=== PATIENT | female | born 1980 | race Two or more races ===

== ENCOUNTER → 2016-05-29 | Outpatient (CLI) | payer OTHER ==
[2016-05-18 23:55] VITALS: BP 111/61
[~2016-05-29] MED LIST: CYCL10TA2 PO; DICL75TA PO; ERYT1OIN6 OS; HYDR-79 PO; HYDR-971 PO; HYDR1TAB12 PO; IBUP100O7 PO; METH-37 PO; NAPR500T3 PO; RANI150T6 PO; TRAM50TA PO
--- NOTE | 2016-05-29 14:20 | RAD ---
Examination: Ultrasound pelvis History: History of pelvic pain during periods during observation for one month Comparison: None available Technique: Transabdominal, transvaginal ultrasound examination of pelvis Findings: The uterus measures 10.9 x 6.2 x 5.1 cm. The right ovary measures 2.8 x 2.8 x1.7 cm. The left ovary measures 2.8 x 2.8 x 1.9 cm. The endometrium measures 1.1 cm in transverse dimension. Blood flow identified in the right and left ovaries. Small amount of fluid identified in the cervical canal. Few nabothian cysts identified in the cervix. Follicles identified in the right and left ovaries. Impression: Small amount of fluid identified in the cervical canal. Nonspecific. Otherwise unremarkable visualized exam.
== END | disposition home or self-care (01) ==
LOC: US 12:42
PROVIDERS: ATTEND Nurse Practitioner Family
DX: R10.2 Pelvic and perineal pain (principal)
CPT/HCPCS: 76830; 76856

== ENCOUNTER 2016-07-26 10:44 | Emergency (ER) | payer OTHER ==
[~2016-07-26] VITALS: Ht 167.6 cm; Wt 136.3 kg
[~2016-07-26 10:44] MED LIST changes: +CYCL-331 PO; -CYCL10TA2 PO; +IBUP100O24 PO; -IBUP100O7 PO
[2016-07-26 10:52] VITALS: BP 125/85
[2016-07-26] MEDS ORDERED: CLIN300C8 PO (11:01)
[2016-07-26] MEDS ORDERED: POLY10DR EACHEYE (11:01)
--- NOTE | 2016-07-26 11:03 | PHYS DOC ---
General Chief Complaint: EYE PROBLEMS Stated Complaint: EYE PROBLEM Time Seen by MD: 10:45 Source: patient Exam Limitations: no limitations Problems: History of Present Illness Initial Comments Pt is 35/F to ED c/o eye itching/swelling. Pt states last week she had FB sensation right eye and removed a hair. Past two days right then left eye redness/itching/yellow matting, today swelling around right eye. No vision changes or further FB sensation. No contact lenses , OTC "pinkeye" drops not helping. Missed work today. Pt states she has yeast infection and that antibiotics always cause them. Will give diflucan today and one to take at end of abx Timing/Duration: last week Severity: moderate Location: eye (R), eye (L) Prearrival Treatment: over the counter meds Modifying Factors: improves with other Associated Symptoms: nasal congestion/drainage, other Allergies: Coded Allergies: Penicillins (Verified Allergy, Intermediate, 12/31/14) UTI Past Medical History Medical History: no pertinent history Surgical History: noncontributory, other Family History Significant Family History: no pertinent family hx Social History Smoker: non-smoker Alcohol: none Drugs: none Constitutional: denies chills, denies diaphoresis, denies fever, denies malaise Eyes: see HPI Ears: denies dizziness, denies pain, denies tinnitus Nose: denies clots, congestion, denies epistaxis Throat: denies pain, denies swelling, denies discharge, denies neck stiffness Respiratory: denies cough, denies shortness of breath Cardiovascular: denies chest pain, denies palpitations Gastrointestinal: denies nausea, denies vomiting Musculoskeletal: denies joint swelling, denies neck pain Neurological: denies headache, denies numbness, denies paresthesia Physical Exam General Appearance: no apparent distress, obese Eyes: bilateral eye PERRL, bilateral eye EOMI, bilateral eye other (b/l conjunctival injection and yellow discharge, right periorbital swelling (mild), no EOM entrapment or discomfort, no bony TTP) Nose: normal inspection Mouth/Throat: normal mouth inspection, pharynx normal Neck: non-tender, supple Cardiovascular/Respiratory: normal peripheral pulses, no respiratory distress 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 Rest, no strenuous activity. OTC tylenol/ibuprofen as needed. Aggressive hand washing, change linens today and every other day this week. Rx: clindamycin, polytrim, diflucan Follow up with your doctor next week for recheck. Return to ED with new or changing symptoms. SEBASTIAN CARL DO July 26, 2016 11:03
[2016-07-26] MEDS ORDERED: FLUC150T PO (11:04)
[2016-07-26] MEDS ORDERED: CLINDAMYCIN HCL 150 MG CAPSULE PO ONE (11:45)
[2016-07-26] MEDS ORDERED: FLUCONAZOLE 100 MG TABLET. PO ONE (11:45)
== END 2016-07-26 11:36 | disposition home or self-care (01) ==
LOC: ER 10:44
DX: H10.9 Unspecified conjunctivitis (principal); L03.213 Periorbital cellulitis; Z88.0 Allergy status to penicillin
CPT/HCPCS: 99283

== ENCOUNTER 2016-10-20 17:06 | Emergency (ER) | payer OTHER ==
[~2016-10-20] VITALS: Ht 167.6 cm; Wt 136.3 kg
[~2016-10-20 17:06] MED LIST changes: +CLIN300C8 PO; +FLUC150T PO; +POLY10DR EACHEYE
[2016-10-20 17:13] VITALS: BP 124/83
[2016-10-20] MEDS ORDERED: DIAZ5TAB PO (17:41)
[2016-10-20] MEDS ORDERED: PRED20TA PO (17:41)
[2016-10-20] MEDS ORDERED: NAPR500T PO (17:41)
--- NOTE | 2016-10-20 17:41 | PHYS DOC ---
Past History Past Medical History: Other Past Surgical History: , Lumbar Laminectomy, Other Smoking: Cigarettes Alcohol Use: None Drug Use: None Adult General Chief Complaint Chief Complaint: BACK PAIN OR INJURY [facility] Patient is a pleasant 36-year-old female with chronic lower back pain who fell September 21. She suffered from standing position landing on her left hand and wrist and torquing her back. Since that time she's had increasing back pain described as achy and worsening with bending over walking and movements. She has a follow- up appointment tomorrow with her primary care doctor. She's been through physical therapy and a prior laminectomy in the past for her bulging disc as she describes to me. She claims she has multiple bulging disks her neck as well as her lumbar spine had not been addressed. She wants to follow-up with pain management but has not made arrangements for doing so. She tells me that the back pain is continuous although it comes in waves with certain movements. She tells me that she has no bowel or bladder incontinence, she's not severed from any numbness and tinea to her lower legs are than pain she demonstrates in the leg with certain movements. She denies any UTI symptoms, vaginal discharge or bleeding. She denies any fevers, chills, diarrhea, nausea or constipation. She normally takes ibuprofen at home which does help her symptoms on occasion. She also took a "" muscle relaxant with her spasms and muscle back pain.. Patient is really looking for immediate relief of her symptoms which is why she came to the emergency department today. Review of Systems Review of Systems Constitutional: Denies fever or chills [] Eyes: Denies change in visual acuity, redness, or eye pain [] HENT: Denies nasal congestion or sore throat [] Respiratory: Denies cough or shortness of breath [] Cardiovascular: No additional information not addressed in [facility] [] GI: Denies abdominal pain, nausea, vomiting, bloody stools or diarrhea [] : Denies dysuria or hematuria [] Musculoskeletal: She complains of lower back pain that radiates to her right lower leg. Integument: Denies rash or skin lesions [] Neurologic: Denies headache, focal weakness or sensory changes since that her leg feels weak secondary to pain. Endocrine: Denies polyuria or polydipsia [] Allergies Allergies Allergies Coded Allergies Type Severity Reaction Last Updated Verified Penicillins Allergy Intermediate 12/31/14 Yes Physical Exam Physical Exam His vital signs are heart rate of 94 pressure 04/07/82 sets 100% on room air with no evidence of fever. Constitutional: Well developed, well nourished, no acute distress, non-toxic appearance. She is morbidly obese resting comfortably on the cot. Cardiovascular:Heart rate regular rhythm, no murmur [] Lungs & Thorax: Bilateral breath sounds clear to auscultation [] Abdomen: Bowel sounds normal, soft, no tenderness, no masses, no pulsatile masses. [] Skin: Warm, dry, no erythema, no rash. [] Back: There is marked tenderness to palpation of the lumbar spine. Bilaterally not midline. Extremities: No tenderness, no cyanosis, no clubbing, ROM intact, no edema. [] Neurologic: Alert and oriented X 3, normal motor function, normal sensory function, no focal deficits noted. Patient has a negative straight leg raise bilaterally. She has normal plantar and dorsiflexion to 5 out of 5 strength to resistance. She has great range of motion of knees bilaterally with +2 DTRs. Does have pain that is reproducible with rotational motion Psychologic: Affect normal, judgement normal, mood normal. [] Current Patient Data Vital Signs Vital Signs Date Time Temp Pulse Resp B/P (MAP) Pulse Ox O2 Delivery O2 Flow Rate FiO2 10/20/16 17:13 97.7 95 20 98 Room Air EKG EKG [] Radiology/Procedures Radiology/Procedures [] Course & Med Decision Making Course & Med Decision Making Pertinent Labs and Imaging studies reviewed. (See chart for details) Patient presents with chronic lower back pain. She is in need of acute pain management. She is instructed in chronic pain management and evaluation and follow-up. She has a normal neuro exam today, no evidence of cauda equina, doubt UTI, patient has no abdominal pain, doubt that she is since she is in a monogamous relationship with another woman. There is nothing new about this pain just chronic exacerbation of old pain. She denies any fevers or chills doubt pyelonephritis or epidural abscess with no evidence of rotation to her back recently. She would likely benefit from an MRI eventually if her conservative management does not improve her symptoms. Impression: Chronic lower back pain [] Dragon Disclaimer Dragon Disclaimer This chart was dictated in whole or in part using Voice Recognition software in a busy, high-work load, and often noisy Emergency Department environment. It may contain unintended and wholly unrecognized errors or omissions. Departure Departure: Impression: Primary Impression: Chronic low back pain Disposition: HOME, SELF-CARE Condition: STABLE Referrals: HIRO ROB MD (PCP) Patient Instructions: Chronic Back Pain, Chronic Pain Management Additional Instructions: Please follow-up your primary care doctor for review of your present medical problems, medications and treatment modalities that you use recently for your chronic back pain issues. Advise you to follow-up with your primary care doctor to be referred back to physical therapy and occupational therapy. We will advise the strength in the lower back with exercise and stretching. Please return for new or worsening symptoms. Please return for any bowel or bladder incontinence night sweats or weight loss that's unintended. Scripts Diazepam (VALIUM) 5 Mg Tablet 5 MG PO TID for 5 Days, #15 TAB Please use one tablet every 8 hours as needed for muscle spasms. Do not drink alcohol or use other narcotics with this medication. Prov: RANDA CÁRDENAS MD 10/20/16 Prednisone (PREDNISONE) 20 Mg Tablet 3 TAB PO DAILY for 5 Days, #15 TAB Prov: RANDA CÁRDENAS MD 10/20/16 Naproxen (NAPROSYN) 500 Mg Tablet 1 TAB PO BID, #20 TAB 1 Refill Prov: RANDA CÁRDENAS MD 10/20/16 RANDA CÁRDENAS MD Oct 20, 2016 17:41
[2016-10-20] MEDS ORDERED: KETOROLAC 60 MG/2 ML VIAL. IM ONE (17:45)
[2016-10-20] MEDS ORDERED: HYDROmorphone PF 1 MG/ML DISP.SYRIN IM ONE (17:45)
== END 2016-10-20 18:11 | disposition home or self-care (01) ==
LOC: ER 17:06
DX: G89.29 Other chronic pain (principal); M54.5 Low back pain; M79.661 Pain in right lower leg; F17.210 Nicotine dependence, cigarettes, uncomplicated; Z88.0 Allergy status to penicillin
CPT/HCPCS: 96372; 99284; J1170; J1885

== ENCOUNTER 2016-12-13 19:05 | Emergency (ER) | payer SELFPAY ==
[~2016-12-13] VITALS: Ht 167.6 cm; Wt 131.5 kg
[~2016-12-13 19:05] MED LIST changes: +DIAZ5TAB PO; +NAPR500T PO; +PRED20TA PO
--- NOTE | 2016-12-13 19:40 | PHYS DOC ---
Past History Past Medical History: Other Past Surgical History: , Lumbar Laminectomy, Other Smoking: Cigarettes Alcohol Use: None Drug Use: None Adult General Chief Complaint Chief Complaint: BACK PAIN OR INJURY [facility] HPI Patient is a 36 year old female who presents with back/hip pain that goes down the back of her leg. She states she's been moving the last several days and her pain is been getting worse. She states she has a little tingling in her little toe of her right foot. She denies any back pain but states it's in her hip and then when she tries to extend her leg it makes it worse. She took some Advil earlier today. She states that she probably needs a work note. She states in the past she staying and cyclobenzaprine. She denies any weakness in her leg other than the little bit of tingling on her 5th toe on her right foot. Review of Systems Review of Systems Constitutional: Denies fever or chills [] Eyes: Denies change in visual acuity, redness, or eye pain [] HENT: Denies nasal congestion or sore throat [] Respiratory: Denies cough or shortness of breath [] Cardiovascular: No additional information not addressed in HPI [] GI: Denies abdominal pain, nausea, vomiting, bloody stools or diarrhea [] : Denies dysuria or hematuria [] Musculoskeletal: Denies back pain or joint pain [] Integument: Denies rash or skin lesions [] Neurologic: Denies headache, focal weakness or sensory changes [] Endocrine: Denies polyuria or polydipsia [] Allergies Allergies Allergies Coded Allergies Type Severity Reaction Last Updated Verified Penicillins Allergy Intermediate 12/31/14 Yes Physical Exam Physical Exam Constitutional: Well developed, well nourished, no acute distress, non-toxic appearance. [] HENT: Normocephalic, atraumatic, bilateral external ears normal, oropharynx moist, no oral exudates, nose normal. [] Eyes: PERRLA, EOMI, conjunctiva normal, no discharge. [] Neck: Normal range of motion, no tenderness, supple, no stridor. [] Cardiovascular:Heart rate regular rhythm, no murmur [] Lungs & Thorax: Bilateral breath sounds clear to auscultation [] Abdomen: Bowel sounds normal, soft, no tenderness, no masses, no pulsatile masses. [] Skin: Warm, dry, no erythema, no rash. [] Back: No tenderness midline, no step-offs noted, tender palpation of the right hip, straight leg raise on the right positive, able to flex and extend toes, ankle, knee with 5 out of 5 strength, no changes in sensation present, no CVA tenderness. [] Extremities: No tenderness, no cyanosis, no clubbing, ROM intact, no edema. [] Neurologic: Alert and oriented X 3, normal motor function, normal sensory function, no focal deficits noted. [] Psychologic: Affect normal, judgement normal, mood normal. [] Current Patient Data Vital Signs Vital Signs Date Time Temp Pulse Resp B/P (MAP) Pulse Ox O2 Delivery O2 Flow Rate FiO2 12/13/16 19:17 98.2 94 16 97 Room Air EKG EKG [] Radiology/Procedures Radiology/Procedures [] Impressions: Muscle strain Course & Med Decision Making Course & Med Decision Making Pertinent Labs and Imaging studies reviewed. (See chart for details) Her symptoms are consistent with sciatica of her right hip. She is encouraged to do Flexeril and I will put him. Return precautions given for weakness or numbness. She is to follow-up with her primary care physician tomorrow. She is instructed not to drive or taking Flexeril as it can impair judgment and make her sleepy. Dragon Disclaimer Dragon Disclaimer This chart was dictated in whole or in part using Voice Recognition software in a busy, high-work load, and often noisy Emergency Department environment. It may contain unintended and wholly unrecognized errors or omissions. Departure Departure: Impression: Primary Impression: Acute low back pain Disposition: 01 HOME, SELF-CARE Condition: STABLE Referrals: HIRO ROB MD (PCP) Patient Instructions: Back Pain, Adult Additional Instructions: You likely have muscle spasm your back. You can take Flexeril one tablet every 8 hours as needed for your muscle spasm/back pain. If it makes you too sleepy, then take it prior to going to bed. Do not drive while taking flexeril, as it can make you sleepy and impair your judgment. You should continue taking Advil 600 mg every 8 hours for next few days. Don't take this dose of Advil for more than 3-5 days in a row. You should drink a few extra glasses of water while taking this dose of Advil. If you develop worsening numbness in your leg, the current numbness doesn't go away or you have any weakness in your leg you need to come back to emergency department for additional evaluation. Scripts Cyclobenzaprine Hcl (CYCLOBENZAPRINE HCL) 10 Mg Tablet 1 TAB PO TID Y for MUSCLE SPASMS, #30 TAB Prov: JIAN ISAAC MD 12/13/16 Problem Qualifiers Primary Impression: Acute low back pain Back pain laterality: right Sciatica presence: unspecified whether sciatica present Qualified Codes: M54.5 - Low back pain JIAN ISAAC MD Dec 13, 2016 19:40
[2016-12-13] MEDS ORDERED: CYCL-331 PO (19:52)
[2016-12-13] MEDS ORDERED: CYCLOBENZAPRINE 10 MG TABLET. PO ONE (20:00)
== END 2016-12-14 20:20 | disposition home or self-care (01) ==
LOC: ER 19:05
DX: M54.5 Low back pain (principal); R20.2 Paresthesia of skin; F17.210 Nicotine dependence, cigarettes, uncomplicated; Z98.890 Other specified postprocedural states; Z88.0 Allergy status to penicillin
CPT/HCPCS: 99283

== ENCOUNTER 2017-01-09 12:53 | Emergency (ER) | payer OTHER ==
[~2017-01-09] VITALS: Ht 167.6 cm; Wt 136.3 kg
[~2017-01-09 12:53] MED LIST changes: -NAPR500T3 PO; +NAPR500T4 PO
--- NOTE | 2017-01-09 13:23 | PHYS DOC ---
General Chief Complaint: Neck Pain Stated Complaint: NECK STIFFNESS Time Seen by MD: 13:21 Source: patient, old records Exam Limitations: no limitations Problems: History of Present Illness Initial Comments Patient is a 36-year-old female brought to the ED by her significant other with neck pain and stiffness. Patient states she has history of cervical disc herniations in the past which had not been bothering her for several years. She states that she used a new pillow for sleep last night and awoke this morning with left-sided neck stiffness and intermittent left upper extremity tingling. She denies any midline or bony neck pain, she denies any electrical radiating pain complaints in her upper extremities, she denies any upper extremity weakness or dropped items, and she denies any new trauma or strenuous activity. Patient states she missed work today and will need a note she is very dramatic when discussing her complaints. No fever chills headache rash sore throat or other evidence of infectious etiology. Timing/Duration: constant (this morning) Severity: severe Modifying Factors: worse with movement, improves with rest Associated Symptoms: other Allergies: Coded Allergies: Penicillins (Verified Allergy, Intermediate, 12/31/14) UTI Past Medical History Medical History: other Surgical History: other ( lumbar laminectomy) Family History Significant Family History: no pertinent family hx Social History Smoker: cigarettes Alcohol: none Drugs: marijuana Review of Systems Constitutional: denies chills, denies diaphoresis, denies fever, denies malaise Respiratory: denies cough, denies shortness of breath, denies wheezing Cardiovascular: denies chest pain, denies palpitations, denies syncope Gastrointestinal: denies diarrhea, denies nausea, denies vomiting Genitourinary: denies dysuria, denies frequency, denies hematuria Musculoskeletal: see HPI Psychiatric/Neurological: see HPI, denies headache, denies weakness (while) Physical Exam General Appearance: mild distress, obese Eyes: bilateral eye normal inspection, bilateral eye PERRL, bilateral eye EOMI Ear, Nose, Throat: hearing grossly normal, normal ENT inspection, normal pharynx (believe with down) Neck: supple (left scalenes and sternocleidomastoid hypertonicity with tenderness noted, decreased range of motion with head rotation to the right and side bending to the right, no midline or bony tenderness no lymphadenopathy or palpable masses) Respiratory: normal breath sounds, no respiratory distress Back: no CVA tenderness, no vertebral tenderness Extremities: non-tender (J), normal inspection 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 I discussed the treatment plan at length with the patient. I discussed signs and symptoms to monitor as well as indications for urgent return to the emergency department. Her questions were answered and she expressed agreement and understanding with the treatment plan, she was advised to discontinue tobacco marijuana abuse. Departure Time of Disposition: 14:16 Disposition: HOME, SELF-CARE Diagnosis: torticollis Condition: GOOD Patient Instructions: Torticollis, Acute Additional Instructions: No driving or operating machinery while taking sedative medications. [id number] Tylenol and ibuprofen as needed. Heating pad to affected area tender 15 minutes 4-6 times daily followed by gentle stretching. Off work through January 12, note given. Continue current medications. Prescription: Prednisone, gabapentin 100 mg quantity 10 Follow-up with your doctor on Wednesday if not better. Return to ED with new or changing symptoms. SEBASTIAN CARL DO Jan 09, 2017 13:23
[2017-01-09] MEDS ORDERED: PRED20TA PO (14:16)
[2017-01-09] MEDS ORDERED: GABA-585 PO (14:16)
[2017-01-09] MEDS ORDERED: ORPHENADRINE CITRATE 60 MG/2 ML VIAL. IM ONE (14:45)
[2017-01-09 15:10] VITALS: BP 144/78
== END 2017-01-09 14:34 | disposition home or self-care (01) ==
LOC: ER 12:53
DX: M43.6 Torticollis (principal); F17.210 Nicotine dependence, cigarettes, uncomplicated; F12.10 Cannabis abuse, uncomplicated; Z88.0 Allergy status to penicillin
CPT/HCPCS: 96372; 99283; J2360

== ENCOUNTER → 2017-01-18 | Outpatient (CLI) | payer OTHER ==
[2017-01-09 15:10] VITALS: BP 144/78
[~2017-01-18] MED LIST changes: +GABA-585 PO
--- NOTE | 2017-01-18 16:52 | RAD ---
4 view cervical spine series History: Neck pain Findings: No acute fracture or discitis or osteolytic process or prevertebral soft tissue swelling is evident. There is mild to moderate degenerative disc space narrowing and endplate spurring at C4-5 and C5-6 and C6-7. IMPRESSION: Degenerative cervical spondylosis.
== END | disposition home or self-care (01) ==
LOC: RAD 12:51
PROVIDERS: ATTEND General Practice
DX: M47.892 Other spondylosis, cervical region (principal)
CPT/HCPCS: 72040

== ENCOUNTER 2017-04-18 08:32 | Emergency (ER) | payer OTHER ==
[~2017-04-18 08:32] MED LIST changes: +NAPR-683 PO; -NAPR500T PO
[2017-04-18 08:40] VITALS: BP 134/84
[2017-04-18 09:13] LABS: INFLUENZA A PATIENT POSITIVE (NEGATIVE); INFLUENZA B PATIENT NEGATIVE (NEGATIVE)
[2017-04-18] MEDS ORDERED: IBUPROFEN 400 MG TABLET. PO ONE (09:15)
[2017-04-18] MEDS ORDERED: HYDR115S2 PO (09:37)
[2017-04-18] MEDS ORDERED: OSEL75CA PO (09:37)
--- NOTE | 2017-04-18 09:37 | PHYS DOC ---
Past History Past Medical History: Other Past Surgical History: , Lumbar Laminectomy, Other Smoking: Cigarettes Alcohol Use: None Drug Use: Marijuana Adult General Chief Complaint Chief Complaint: FLU SYMPTOM HPI HPI 36-year-old female patient complaining of nasal congestion, dry cough, nausea, subjective fever and chills, generalized weakness for the last 44 hours with 2 episodes of diarrhea every day. Patient had sick contacts at home. Patient denies urinary symptom and . Review of Systems Review of Systems Constitutional: Reports fever and chills Eyes: Denies change in visual acuity, redness, or eye pain [] HENT: Reports nasal congestion or sore throat Respiratory: Reports cough and shortness of breath Cardiovascular: No additional information not addressed in HPI [] GI: Denies abdominal pain, nausea, vomiting, bloody stools , reports diarrhea [] : Denies dysuria or hematuria [] Musculoskeletal: Denies back pain or joint pain [] Integument: Denies rash or skin lesions [] Neurologic: Denies headache, focal weakness or sensory changes [] Endocrine: Denies polyuria or polydipsia [] All other systems were reviewed and found to be within normal limits, except as documented in this note. Current Medications Current Medications Current Medications Medications (Trade) Dose Ordered Sig/Suzie Start Time Stop Time Status Last Admin Dose Admin Ibuprofen (Motrin) 800 mg 1X ONCE 04/18/17 09:15 04/18/17 09:16 DC 04/18/17 09:15 800 MG Allergies Allergies Allergies Coded Allergies Type Severity Reaction Last Updated Verified Penicillins Allergy Intermediate 12/31/14 Yes Physical Exam Physical Exam Constitutional: Well developed, well nourished, mild distress, non-toxic appearance, afebrile. [] HENT: Normocephalic, atraumatic, bilateral external ears normal, pharyngeal erythema, oropharynx moist, no oral exudates, nose normal. [] Eyes: PERRLA, EOMI, conjunctiva normal, no discharge. [] Neck: Normal range of motion, no tenderness, supple, no stridor. [] Cardiovascular:Heart rate regular rhythm, no murmur [] Lungs & Thorax: Bilateral breath sounds clear to auscultation [] Abdomen: Bowel sounds normal, soft, no tenderness, no masses, no pulsatile masses. [] Skin: Warm, dry, no erythema, no rash. [] Back: No tenderness, no CVA tenderness. [] Extremities: No tenderness, no cyanosis, no clubbing, ROM intact, no edema. [] Neurologic: Alert and oriented X 3, normal motor function, normal sensory function, no focal deficits noted. [] Psychologic: Affect normal, judgement normal, mood normal. [] Current Patient Data Lab Results Laboratory Tests Test 04/18/17 08:40 Influenza Type A (Rapid) Positive (NEGATIVE) Influenza Type B (Rapid) Negative (NEGATIVE) EKG EKG [] Radiology/Procedures Radiology/Procedures [] Course & Med Decision Making Course & Med Decision Making Pertinent Labs reviewed. (See chart for details) Evaluation of patient in ER showed 36-year-old female patient with flulike symptoms for the last 48 hours. Patient had temperature of 100 in ER. UA was positive. Patient treated with ibuprofen and plan to give prescription for Tussionex and Tamiflu and instruction to quit smoking and increase fluid intake. [] Dragon Disclaimer Dragon Disclaimer This electronic medical record was generated, in whole or in part, using a voice recognition dictation system. Departure Departure: Impression: Primary Impression: Influenza A Additional Impressions: Fever Tobacco abuse Tobacco abuse counseling Disposition: HOME, SELF-CARE (At 0935) Condition: IMPROVED Referrals: HIRO ROB MD (PCP) Patient Instructions: Fever, Adult, Influenza A (H1N1) Additional Instructions: Drink plenty of liquids Follow-up with your primary care physician in 3-5 days Return to ER if not getting better Scripts Hydrocodone/Chlorphen P-Stirex (Tussionex Pennkinetic Susp) 115 Ml [place].er.12h 5 ML PO BID, #120 ML Prov: MERCEDEZ SALMERON MD 04/18/17 Oseltamivir Phosphate (TAMIFLU) 75 Mg Capsule 1 CAP PO BID, #10 CAP Prov: MERCEDEZ SALMERON MD 04/18/17 Problem Qualifiers MERCEDEZ SALMERON MD Apr 18, 2017 09:37
== END 2017-04-18 09:50 | disposition home or self-care (01) ==
LOC: ER 08:32
DX: J09.X2 Influenza due to identified novel influenza A virus with other respiratory manifestations (principal); R19.7 Diarrhea, unspecified; F17.210 Nicotine dependence, cigarettes, uncomplicated; F12.10 Cannabis abuse, uncomplicated; Z71.6 Tobacco abuse counseling; Z88.0 Allergy status to penicillin
CPT/HCPCS: 87804; 99284

== ENCOUNTER 2017-06-12 16:02 | Emergency (ER) | payer OTHER ==
[~2017-06-12 16:02] MED LIST changes: +HYDR115S2 PO; -IBUP100O24 PO; +IBUP100O25 PO; +NAPR-514 PO; -NAPR500T4 PO; +OSEL75CA PO
[2017-06-12 16:15] VITALS: BP 122/87
--- NOTE | 2017-06-12 17:06 | PHYS DOC ---
Past History Past Medical History: No Pertinent History Past Surgical History: Smoking: Cigarettes Alcohol Use: None Drug Use: Marijuana Adult General Chief Complaint Chief Complaint: KNEE INJURY HPI HPI Patient is a 36 y/o F who presents to the ED with complaint of a left knee injury today. Patient was standing and turned, she felt a pop/pain in her medial left knee. Since then it's painful to bear weight. She cannot fully extend or fully flex her knee. She denies other injury. She has had a problem with this knee in the past. She works as an mail agent. Review of Systems Review of Systems Constitutional: Denies fever or chills [] Musculoskeletal: As in history of present illness Allergies Allergies Allergies Coded Allergies Type Severity Reaction Last Updated Verified Penicillins Allergy Intermediate 12/31/14 Yes Physical Exam Physical Exam Constitutional: Well developed, well nourished, obese female, alert, warm and dry, mentating normally. HENT: Normocephalic, atraumatic, bilateral external ears normal, nose normal. [ ] Eyes: conjunctiva normal, no discharge. [] Neck: Normal range of motion, no stridor. [] Skin: Warm, dry, no erythema, no rash. [] Extremities: Left knee: The patient is able to actively extend to 10-15 shy of full extension, quadriceps patellar tendon intact. Patient is able to actively flex to correction. Tenderness to palpation over the medial aspect and over the quadriceps patellar tendon. No crepitance. No joint effusion. Neurologic: Alert and oriented X 3, normal motor function, no focal deficits noted. [] EKG EKG [] Radiology/Procedures Radiology/Procedures Three-view x-ray of the left knee read by me. No acute findings.[] Course & Med Decision Making Course & Med Decision Making Pertinent Labs and Imaging studies reviewed. (See chart for details) 36-year-old female presents with a twisting injury to the left knee and now has pain and it feels like it might give out on her when she bears weight. We will put her in a knee immobilizer. See instructions for plan. [] Dragon Disclaimer Dragon Disclaimer This electronic medical record was generated, in whole or in part, using a voice recognition dictation system. Departure Departure: Impression: Primary Impression: Left medial knee pain Disposition: 01 HOME, SELF-CARE Condition: STABLE Referrals: ROMAIN LUKE DO (PCP) Patient Instructions: Knee Pain, [id number] Additional Instructions: Ice as often as possible for 2 or 3 days to help with swelling and inflammation. Wear the knee immobilizer as needed for comfort. Once your knee starts feeling better, you don't have to wear it. If you are not bearing weight and you don't need it for comfort, for example, watching TV or in bed, you do not need to wear it. Try to stay off of your knee as much as possible for the next 2-3 days to give it a chance to heal. You can walk briefly from one place to the next but mostly sit down and ice your knee as much as possible. If not getting better in 3-5 days, recheck with your doctor. FRANSISCO ARMSTRONG MD Jun 12, 2017 17:06
[2017-06-12] MEDS ORDERED: IBUPROFEN 400 MG TABLET. PO ONE (17:30)
--- NOTE | 2017-06-13 09:30 | RAD ---
Three-view left knee radiographs June 12, 2012 Clinical history: Left knee pain. Recent twisting injury. AP, oblique and 2 lateral digital radiographs of the left knee were obtained. No fracture or dislocation of the left knee is seen. There is no radiographic evidence of a joint effusion. Very mild degenerative changes are seen involving the left knee. Impression: No fracture or dislocation of the left knee is seen.
== END 2017-06-12 17:30 | disposition home or self-care (01) ==
LOC: ER 16:02
DX: S89.92XA Unspecified injury of left lower leg, initial encounter (principal); F17.210 Nicotine dependence, cigarettes, uncomplicated; F12.10 Cannabis abuse, uncomplicated; Z88.0 Allergy status to penicillin; X50.9XXA Other and unspecified overexertion or strenuous movements or postures, initial encounter; Y93.89 Activity, other specified; Y99.8 Other external cause status; Y92.89 Other specified places as the place of occurrence of the external cause
CPT/HCPCS: 29505; 73562; 99284

== ENCOUNTER 2018-02-23 08:00 | Emergency (ER) | payer SELFPAY ==
[~2018-02-23] VITALS: Ht 167.6 cm; Wt 129.2 kg
[~2018-02-23 08:00] MED LIST changes: +HYDR-1179 PO; +HYDR-3165 PO; -HYDR-79 PO; -HYDR-971 PO; +RANI150T21 PO; -RANI150T6 PO
[2018-02-23] MEDS ORDERED: IV NORMAL SALINE 1,000ML 1,000 ML IV SCH (08:20)
[2018-02-23 08:41] LABS: BASO # 0.1 x10^3/uL (0.0-0.2); BASO % 0 % (0-3); EOS % 0 % (0-3); HEMATOCRIT 44.1 % (36.0-47.0); HEMOGLOBIN 15.1 g/dL (12.0-15.5); LYMPH # 2.6 x10^3/uL (1.0-4.8); LYMPH % 19 % (24-48); MEAN CORPUSCULAR HEMOGLOBIN 30 pg (25-35); MEAN CORPUSCULAR HGB CONC 34 g/dL (31-37); MEAN CORPUSCULAR VOLUME 88 fL (79-100); MONO # 0.6 x10^3/uL (0.0-1.1); MONO % 5 % (0-9); NEUT # 10.1 x10^3uL (1.8-7.7); NEUT % 75 % (31-73); PLATELET COUNT 273 x10^3/uL (140-400); RED CELL DISTRIBUTION WIDTH 13.1 % (11.5-14.5); WHITE BLOOD COUNT 13.4 x10^3/uL (4.0-11.0)
[2018-02-23 08:55] LABS: ALBUMIN 3.8 g/dL (3.4-5.0); ALBUMIN/GLOBULIN RATIO 1.1 (1.0-1.7); CREATININE 0.7 mg/dL (0.6-1.0); GFR 94.7; TOTAL BILIRUBIN 0.7 mg/dL (0.2-1.0); TOTAL PROTEIN 7.3 g/dL (6.4-8.2)
[2018-02-23] MEDS ORDERED: ONDANSETRON PF 4 MG/2 ML VIAL. IV ONE (09:00)
[2018-02-23] MEDS ORDERED: FAMOTIDINE 20 MG/2 ML VIAL IVP ONE (09:00)
[2018-02-23 09:27] LABS: FECAL OB PT POSITIVE (NEG)
[2018-02-23 09:42] LABS: BACTERIA,URINE 0 /HPF (0-FEW); BILIRUBIN,URINE NEG (NEG); CLARITY,URINE HAZY; COLOR,URINE AMBER; GLUCOSE,URINE NEG (NEG); NITRITE,URINE NEG (NEG); RBC,URINE RARE /HPF (0-2); SQUAMOUS EPITHELIAL CELL,UR OCC /LPF; UROBILINOGEN,URINE 0.2 mg/dL (0.2 mg/dL); WBC,URINE 0 /HPF (0-4)
[2018-02-23] MEDS ORDERED: RANI150T21 PO (10:32)
[2018-02-23] MEDS ORDERED: ONDA4TAB7 PO (10:32)
--- NOTE | 2018-02-23 10:33 | PHYS DOC ---
Past History Past Medical History: No Pertinent History Past Surgical History: , Other Smoking: Cigarettes Alcohol Use: None Drug Use: Marijuana Adult General Chief Complaint Chief Complaint: NAUSEA/VOMITING/DIARRHEA HPI HPI Patient is a 37 year old female who presents with complaining of episodes of nausea and vomiting for 4 days. Patient states she had about 10 episodes of nonbloody diarrhea started 4 days ago and improved after taking over-the- counter medication for diarrhea after 2 days but today had 6 episodes of diarrhea that was mucus mixed with bright red blood. Patient states she had 2 episodes of vomiting that had bright red blood also. Patient complaining of generalized abdominal pain and generalized weakness and chills after episodes of vomiting. Patient denies urinary symptoms, sick contact, fever, vaginal bleeding or . Review of Systems Review of Systems Constitutional: Denies fever Eyes: Denies change in visual acuity, redness, or eye pain [] HENT: Denies nasal congestion or sore throat [] Respiratory: Denies cough or shortness of breath [] Cardiovascular: No additional information not addressed in HPI [] GI: Reports abdominal pain, nausea, vomiting, bloody stools and diarrhea [] : Denies dysuria or hematuria [] Musculoskeletal: Denies back pain or joint pain [] Integument: Denies rash or skin lesions [] Neurologic: Denies headache, focal weakness or sensory changes [] Endocrine: Denies polyuria or polydipsia [] All other systems were reviewed and found to be within normal limits, except as documented in this note. Current Medications Current Medications Current Medications Medications (Trade) Dose Ordered Sig/Suzie Start Time Stop Time Status Last Admin Dose Admin Famotidine (Pepcid Vial) 20 mg 1X ONCE 02/23/18 09:00 02/23/18 09:01 DC 02/23/18 09:53 20 MG Ondansetron HCl (Zofran) 4 mg 1X ONCE 02/23/18 09:00 02/23/18 09:01 DC 02/23/18 09:53 4 MG Sodium Chloride 1,000 ml @ 1,000 mls/hr Q1H 02/23/18 08:20 02/23/18 09:19 DC 02/23/18 09:53 1,000 MLS/HR Allergies Allergies Allergies Coded Allergies Type Severity Reaction Last Updated Verified Penicillins Allergy Intermediate 12/31/14 Yes Physical Exam Physical Exam Constitutional: Well developed, well nourished, mild distress, non-toxic appearance. [] HENT: Normocephalic, atraumatic, oropharynx moist, no oral exudates, nose normal. [] Eyes: PERRLA, EOMI, conjunctiva normal, no discharge. [] Neck: Normal range of motion, no tenderness, supple, no stridor. [] Cardiovascular:Heart rate regular rhythm, no murmur [] Lungs & Thorax: Bilateral breath sounds clear to auscultation [] Abdomen: Bowel sounds normal, soft, no tenderness, no masses, no pulsatile masses, patient refused rectal exam and had a bowel movement while she was in ER with small amount of bright rate blood mixed with mucus without stool. Skin: Warm, dry, no erythema, no rash. [] Back: No tenderness, no CVA tenderness. [] Extremities: No tenderness, no cyanosis, no clubbing, ROM intact, no edema. [] Neurologic: Alert and oriented X 3, normal motor function, normal sensory function, no focal deficits noted. [] Psychologic: Affect anxious, judgement normal, mood normal. [] Current Patient Data Lab Results Laboratory Tests Test 02/23/18 08:30 02/23/18 08:55 White Blood Count 13.4 x10^3/uL (4.0-11.0) H Red Blood Count 5.00 x10^6/uL (3.50-5.40) Hemoglobin 15.1 g/dL (12.0-15.5) Hematocrit 44.1 % (36.0-47.0) Mean Corpuscular Volume 88 fL (79-100) Mean Corpuscular Hemoglobin 30 pg (25-35) Mean Corpuscular Hemoglobin Concent 34 g/dL (31-37) Red Cell Distribution Width 13.1 % (11.5-14.5) Platelet Count 273 x10^3/uL (140-400) Neutrophils (%) (Auto) 75 % (31-73) H Lymphocytes (%) (Auto) 19 % (24-48) L Monocytes (%) (Auto) 5 % (0-9) Eosinophils (%) (Auto) 0 % (0-3) Basophils (%) (Auto) 0 % (0-3) Neutrophils # (Auto) 10.1 x10^3uL (1.8-7.7) H Lymphocytes # (Auto) 2.6 x10^3/uL (1.0-4.8) Monocytes # (Auto) 0.6 x10^3/uL (0.0-1.1) Eosinophils # (Auto) 0.0 x10^3/uL (0.0-0.7) Basophils # (Auto) 0.1 x10^3/uL (0.0-0.2) Sodium Level 141 mmol/L (136-145) Potassium Level 4.0 mmol/L (3.5-5.1) Chloride Level 105 mmol/L (98-107) Carbon Dioxide Level 26 mmol/L (21-32) Anion Gap 10 (6-14) Blood Urea Nitrogen 15 mg/dL (7-20) Creatinine 0.7 mg/dL (0.6-1.0) Estimated GFR (Cockcroft-Gault) 94.7 BUN/Creatinine Ratio 21 (6-20) H Glucose Level 107 mg/dL (70-99) H Calcium Level 9.0 mg/dL (8.5-10.1) Total Bilirubin 0.7 mg/dL (0.2-1.0) Aspartate Amino Transferase (AST) 16 U/L (15-37) Alanine Aminotransferase (ALT) 17 U/L (14-59) Alkaline Phosphatase 98 U/L (46-116) Total Protein 7.3 g/dL (6.4-8.2) Albumin 3.8 g/dL (3.4-5.0) Albumin/Globulin Ratio 1.1 (1.0-1.7) Lipase 142 U/L (73-393) Urine Collection Type Unknown Urine Color Purnima Urine Clarity Hazy Urine pH 5.0 Urine Specific [place] >=1.030 Urine Protein Neg (NEG-TRACE) Urine Glucose (UA) Neg mg/dL (NEG) Urine Ketones (Stick) Neg mg/dL (NEG) Urine Blood Trace (NEG) Urine Nitrite Neg (NEG) Urine Bilirubin Neg (NEG) Urine Urobilinogen Dipstick 0.2 mg/dL (0.2 mg/dL) Urine Leukocyte Esterase Neg (NEG) Urine RBC Rare /HPF (0-2) Urine WBC 0 /HPF (0-4) Urine Squamous Epithelial Cells Occ /LPF Urine Bacteria 0 /HPF (0-FEW) Urine Mucus Mod /LPF Stool Occult Blood Positive (NEG) EKG EKG [] Radiology/Procedures Radiology/Procedures [] Course & Med Decision Making Course & Med Decision Making Pertinent Labs reviewed. (See chart for details) Evaluation of patient in ER showed 37-year-old female patient with complaining of episode of nausea and vomiting and diarrhea and abdominal pain for 4 days and fresh blood in stool and vomiting material today. Patient had unremarkable physical exam without pallor with hemoglobin of 14. Patient has history of hemorrhoids and informed about bleeding from hemorrhoids with episodes of diarrhea. Patient felt better with treatment in ER and tolerated oral intake and ambulated without problem. Patient instructed to return to ER if continued to have bloody vomiting or diarrhea. Dragon Disclaimer Dragon Disclaimer This electronic medical record was generated, in whole or in part, using a voice recognition dictation system. Departure Departure: Impression: Primary Impression: Acute gastroenteritis Additional Impressions: Hematochezia Tobacco abuse Tobacco abuse counseling Abdominal pain Disposition: HOME, SELF-CARE (at 1028) Condition: IMPROVED Referrals: SANDRA BECERRA (PCP) Patient Instructions: Bloody Stools, Hemorrhoids, Smoking Cessation, Tips For Success, Viral Gastroenteritis Additional Instructions: Drink plenty of liquids Follow-up with your primary care physician in 3-5 days Return to ER if not getting better Do not take any solid food for the next 24 hours Scripts Ranitidine Hcl (ZANTAC) 150 Mg Tablet 1 TAB PO BID for dyspepcia, #14 TAB 0 Refills Prov: MERCEDEZ SALMERON MD 02/23/18 Ondansetron Hcl (ZOFRAN) 4 Mg Tablet 1 TAB PO Q6HRS for nausea and vomiting, #12 TAB Prov: MERCEDEZ SALMERON MD 02/23/18 Problem Qualifiers MERCEDEZ SALMERON MD Feb 23, 2018 10:33
[2018-02-23 10:50] VITALS: BP 137/72
== END 2018-02-23 10:54 | disposition home or self-care (01) ==
LOC: ER 08:00
DX: K52.9 Noninfective gastroenteritis and colitis, unspecified (principal); K92.1 Melena; F17.210 Nicotine dependence, cigarettes, uncomplicated; Z71.6 Tobacco abuse counseling; Z98.890 Other specified postprocedural states; Z88.0 Allergy status to penicillin
CPT/HCPCS: 36415; 80053; 81001; 82274; 83690; 85025; 96361; 96374; 96375; 99284; J2405; J3490; J7030

== ENCOUNTER 2018-03-08 19:46 | Emergency (ER) | payer OTHER ==
[~2018-03-08] VITALS: Ht 167.6 cm; Wt 127.0 kg
[~2018-03-08 19:46] MED LIST changes: +ONDA4TAB7 PO
[2018-03-08 19:53] VITALS: BP 128/79
--- NOTE | 2018-03-08 20:19 | PHYS DOC ---
Past History Past Medical History: No Pertinent History Past Surgical History: , Other Smoking: Cigarettes Additional Smoking Information: 03/16 ppd Alcohol Use: None Drug Use: Marijuana Social History Narrative: daily Adult General Chief Complaint Chief Complaint: DENTAL PROBLEM HPI HPI 37-year-old female presents with right lower quadrant dental pain. The patient has multiple carious in her mouth that she is trying to get scheduled to have fixed. Her dental insurance does not kick in until March 15. The patient has been managing this at home for the last couple weeks with [employer]. It has worked until yesterday when the pain started to increase despite the medication. Today the pain is even worse and she feels like her gums are swollen. She is not sure what else to do. She denies fever or chills. Review of Systems Review of Systems Constitutional: Denies fever or chills [] Eyes: Denies change in visual acuity, redness, or eye pain [] HENT: Dental pain[] Respiratory: Denies cough or shortness of breath [] Cardiovascular: No additional information not addressed in HPI [] GI: Denies abdominal pain, nausea, vomiting, bloody stools or diarrhea [] : Denies dysuria or hematuria [] Musculoskeletal: Denies back pain or joint pain [] Integument: Denies rash or skin lesions [] Neurologic: Denies headache, focal weakness or sensory changes [] Endocrine: Denies polyuria or polydipsia [] All other systems were reviewed and found to be within normal limits, except as documented in this note. Allergies Allergies Allergies Coded Allergies Type Severity Reaction Last Updated Verified Penicillins Allergy Intermediate 12/31/14 Yes Physical Exam Physical Exam Constitutional: Well developed, well nourished, no acute distress, non-toxic appearance. [] HENT: Normocephalic, atraumatic, bilateral external ears normal, oropharynx moist, nose normal. Right lower quadrant molars with erythematous gums. No palpable abscess.[] Eyes: PERRLA, EOMI, conjunctiva normal, no discharge. [] Neck: Normal range of motion, no tenderness, supple, no stridor. [] Cardiovascular:Heart rate regular rhythm, no murmur [] Lungs & Thorax: Bilateral breath sounds clear to auscultation [] Abdomen: Bowel sounds normal, soft, no tenderness, no masses, no pulsatile masses. [] Skin: Warm, dry, no erythema, no rash. [] Back: No tenderness, no CVA tenderness. [] Extremities: No tenderness, no cyanosis, no clubbing, ROM intact, no edema. [] Neurologic: Alert and oriented X 3, normal motor function, normal sensory function, no focal deficits noted. [] Psychologic: Affect normal, judgement normal, mood normal. [] Current Patient Data Vital Signs Vital Signs Date Time Temp Pulse Resp B/P (MAP) Pulse Ox O2 Delivery O2 Flow Rate FiO2 03/08/18 19:53 98.5 82 98 Room Air EKG EKG [] Radiology/Procedures Radiology/Procedures [] Course & Med Decision Making Course & Med Decision Making Pertinent Labs and Imaging studies reviewed. (See chart for details) The patient appears to have an infection around the molars on the right lower quadrant of her mouth. I will give her a prescription for Augmentin for the next 7 days. We will give her first dose in the ED. I'll also discharge her with [place] 5/325 for pain. She will see about getting into emergency dental clinic at [facility] and/or to get an appointment scheduled with her new insurance as soon as possible. She is stable for discharge at this time. A review of the Database does not show any narcotic prescriptions for several months. [] Dragon Disclaimer Dragon Disclaimer This electronic medical record was generated, in whole or in part, using a voice recognition dictation system. Departure Departure: Referrals: SANDRA BECERRA (PCP) YAIR VILLEGAS DO Mar 08, 2018 20:19
[2018-03-08] MEDS ORDERED: HYDR-3165 PO (20:22)
[2018-03-08] MEDS ORDERED: CLIN300C8 PO (20:22)
[2018-03-08] MEDS: HYDROcodone/APAP 5/325MG 1 TAB TABLET PO ONE (20:28)
[2018-03-08] MEDS: CLINDAMYCIN HCL 150 MG CAPSULE PO ONE (20:29)
== END 2018-03-08 20:34 | disposition home or self-care (01) ==
LOC: ER 19:46
DX: K08.89 Other specified disorders of teeth and supporting structures (principal); R22.0 Localized swelling, mass and lump, head; F17.210 Nicotine dependence, cigarettes, uncomplicated; Z88.0 Allergy status to penicillin
CPT/HCPCS: 99283

== ENCOUNTER → 2018-07-08 | Outpatient (CLI) | payer BC ==
[~2018-07-08] MED LIST changes: -HYDR1TAB12 PO; +HYDR1TAB13 PO
--- NOTE | 2018-07-08 15:40 | RAD ---
Acute abdominal series without comparison for abdominal pain since Wednesday night. FINDINGS: Lungs are clear. Cardiomediastinum is grossly unremarkable. No significant soft tissue or osseous anomalies are seen. There is no free air beneath the diaphragm. There is scattered abdominal bowel gas in a nonobstructive pattern. No pathologic calcifications are seen. IMPRESSION: 1. No acute cardiopulmonary abnormality. 2. Nonobstructive nonspecific bowel gas pattern. Electronically signed by: Stanley Fan MD (07/08/2018 3:37 PM) [id number]
== END | disposition home or self-care (01) ==
LOC: DXRAD 10:32
PROVIDERS: ATTEND Internal Medicine Gastroenterology
DX: R10.9 Unspecified abdominal pain (principal)
CPT/HCPCS: 74022

== ENCOUNTER → 2018-08-22 | Outpatient (CLI) | payer BC ==
[~2018-08-22] MED LIST changes: +RANI-376 PO; -RANI150T21 PO
--- NOTE | 2018-08-22 17:54 | RAD ---
Right foot, 2 views, 08/22/2018: HISTORY: Right foot pain No recent fracture or dislocation is identified. Mild deformity of the distal end of the proximal phalanx of the little toe is probably due to old trauma. There is mild subcutaneous edema. IMPRESSION: No acute bony abnormality is detected. Electronically signed by: Doug Mathew MD (08/22/2018 5:51 PM) [facility]
== END | disposition home or self-care (01) ==
LOC: DXRAD 15:06
PROVIDERS: ATTEND Registered Nurse
DX: M21.6X1 Other acquired deformities of right foot (principal); R60.0 Localized edema
CPT/HCPCS: 73620

== ENCOUNTER 2019-11-19 23:01 | Emergency (ER) | payer SELFPAY ==
[~2019-11-19] VITALS: Ht 167.6 cm; Wt 127.2 kg
[2019-11-19 23:15] VITALS: BP 128/79
--- NOTE | 2019-11-19 23:43 | PHYS DOC ---
Past History Past Medical History: No Pertinent History Past Surgical History: , Other Smoking: Cigarettes Alcohol Use: None Drug Use: Marijuana Adult General Chief Complaint Chief Complaint: FOREIGNBODY EAR HPI HPI Patient is a 39-year-old female who presents for concern of foreign body in left ear. Onset was noted within 1 hour prior to arrival. Patient unsure what is an ear but reports foreign body sensation and " something crawling around". Patient reports putting hydrogen peroxide in the ear with moderate relief in symptomology stating she cannot feel what ever it is moving around anymore. Nonetheless, this concerned her prompting her to visit our ER for formal evalua tion. Of note, patient was diagnosed with a left otitis externa after swimming extensively over the course of the past week. She has been using topical antibiotic drops into left ear daily Review of Systems Review of Systems Fourteen body systems of review of systems have been reviewed. See HPI for pertinent positives and negative responses, other quispe all other systems are negative, non-pertinent or non-contributory Allergies Allergies Allergies Coded Allergies Type Severity Reaction Last Updated Verified Penicillins Allergy Intermediate 12/31/14 Yes Physical Exam Physical Exam Constitutional: Well developed, well nourished, no acute distress, non-toxic appearance. HENT: Normocephalic, atraumatic, bilateral external ears normal, right middle and inner ear unremarkable, left middle ear canal with residual dried exudate present without any foreign body, left TM pearly without any obvious infectious findings or perforation, oropharynx moist, no oral exudates, nose normal. Eyes: PERRLA, EOMI, conjunctiva normal, no discharge. Neck: Normal range of motion, no tenderness, supple, no stridor. Cardiovascular: Heart rate regular per monitor Lungs & Thorax: Bilateral chest rise Abdomen: Soft, no tenderness, no masses, no pulsatile masses. Nonsurgical abdomen, no peritoneal signs Skin: Warm, dry, no erythema, no rash. Back: No tenderness, no CVA tenderness. Extremities: No tenderness, no cyanosis, no clubbing, ROM intact, no edema. Neurologic: Alert and oriented X 3, grossly normal motor & sensory function, no focal deficits noted. Psychologic: Affect normal, judgement normal, anxious mood EKG EKG [] Radiology/Procedures Radiology/Procedures [] Course & Med Decision Making Course & Med Decision Making ABCs non-concerning Comprehensive history and physical exam obtained Discussed most likely diagnosis of sequelae of otitis media infection versus potential foreign body that was evacuated with hydrogen peroxide flush performed by patient prior to arrival I discussed with patient importance of continuing medical therapy for left otitis externa infection and close PCP follow-up in upcoming 3 to 10 days time I discussed potential role for ENT follow-up in outpatient setting if symptoms do not improve, she understood this well Strict return precautions were discussed with good understanding by patient, all questions and concerns addressed prior to ER departure in stable condition Nazia Disclaimer Nazia Disclaimer This electronic medical record was generated, in whole or in part, using a voice recognition dictation system. Departure Departure: Impression: Primary Impression: Problem of left ear Disposition: HOME/RESIDENCE PRIOR TO ADM Condition: STABLE Referrals: [employer] (PCP) Patient Instructions: Otitis Externa Additional Instructions: As discussed prior to ER departure, please follow-up with your primary care physician this upcoming Wednesday and discuss your symptoms. You are on appropriate treatment for your swimmer's ear (otitis externa). You may benefit from outpatient ENT consultation if your symptoms do not resolve It was a pleasure to take care of you and I wish you a speedy recovery! Justification of Admission: Justification of Admission: Justification of Admission Dx: N/A MANJIT LIN DO Nov 19, 2019 23:43
== END 2019-11-20 00:11 | disposition home or self-care (01) ==
LOC: ER 23:01
DX: H93.8X2 Other specified disorders of left ear (principal); F17.210 Nicotine dependence, cigarettes, uncomplicated; Z88.0 Allergy status to penicillin
CPT/HCPCS: 99281

== ENCOUNTER 2020-07-26 13:07 | Emergency (ER) | payer OTHER ==
[~2020-07-26] VITALS: Ht 167.6 cm; Wt 127.5 kg
[~2020-07-26 13:07] MED LIST changes: -CLIN300C8 PO; +CLIN300C9 PO
[2020-07-26 13:14] VITALS: BP 129/83
[2020-07-26 13:37] LABS: BASO # 0.1 x10^3/uL (0.0-0.2); BASO % 1 % (0-3); EOS % 0 % (0-3); HEMATOCRIT 40.9 % (36.0-47.0); LYMPH # 2.3 x10^3/uL (1.0-4.8); LYMPH % 21 % (24-48); MEAN CORPUSCULAR HEMOGLOBIN 31 pg (25-35); MEAN CORPUSCULAR HGB CONC 34 g/dL (31-37); MEAN CORPUSCULAR VOLUME 91 fL (79-100); MONO # 0.4 x10^3/uL (0.0-1.1); MONO % 4 % (0-9); NEUT % 74 % (31-73); PLATELET COUNT 243 x10^3/uL (140-400); RED CELL DISTRIBUTION WIDTH 12.9 % (11.5-14.5); WHITE BLOOD COUNT 10.8 x10^3/uL (4.0-11.0)
--- NOTE | 2020-07-26 13:39 | PHYS DOC ---
Past History Past Medical History: No Pertinent History Past Surgical History: , Tubal ligation, Other Additional Past Surgical Histo: back prudencio-L4-L5 for a mariangel disk;lt knee for torn meniscus Smoking: Cigarettes Additional Smoking Information: quit in 2018 Alcohol Use: None Drug Use: Marijuana General Adult EDM: Chief Complaint: CHEST PAIN HPI: HPI: 39-year-old female presents with chest pain. She states that it started about an hour ago. She describes it as a central heaviness. It is 5 out of 10. She also feels a bit short of breath but denies diaphoresis. She was at work when the pain started. It came out of nowhere. She denies worsening with exertion. Patient does not have a cardiac or lung history. Her parents did have cardiovascular disease at a young age. Her father's first heart attack was at 33 and he at 53. Patient denies fever or chills. Review of Systems: Review of Systems: Constitutional: Denies fever or chills Eyes: Denies change in visual acuity HENT: Denies nasal congestion or sore throat Respiratory: Shortness of breath Cardiovascular: Chest pain GI: Denies abdominal pain, nausea, vomiting, bloody stools or diarrhea : Denies dysuria Musculoskeletal: Denies back pain or joint pain Integument: Denies rash Neurologic: Headache. Denies focal weakness or sensory changes Endocrine: Denies polyuria or polydipsia Lymphatic: Denies swollen glands Psychiatric: Denies depression or anxiety Allergies: Allergies: Allergies Coded Allergies Type Severity Reaction Last Updated Verified Penicillins Allergy Intermediate 07/26/20 Yes Physical Exam: PE: Constitutional: Well developed, well nourished, morbidly obese, no acute distress, non-toxic appearance. [] HENT: Normocephalic, atraumatic, bilateral external ears normal, oropharynx moist, no oral exudates, nose normal. [] Eyes: PERRLA, EOMI, conjunctiva normal, no discharge. [] Neck: Normal range of motion, no tenderness, supple, no stridor. [] Cardiovascular: Heart rate 98, regular rhythm, no murmur [] Lungs & Thorax: Bilateral breath sounds clear to auscultation [] Abdomen: Bowel sounds normal, soft, no tenderness, no masses, no pulsatile masses. [] Skin: 4 cm x 6 cm bruise on the right upper thigh. [] Back: No tenderness, no CVA tenderness. [] Extremities: No tenderness, no cyanosis, no clubbing, ROM intact, no edema. [] Neurologic: Alert and oriented X 3, normal motor function, normal sensory function, no focal deficits noted. [] Psychologic: Affect normal, judgement normal, mood concerned. [] Current Patient Data: Vital Signs: Vital Signs Date Time Temp Pulse Resp B/P (MAP) Pulse Ox O2 Delivery O2 Flow Rate FiO2 07/26/20 13:14 98.7 100 20 129/83 (98) 98 Room Air EKG: EKG: Sinus rhythm, rate 98, normal axis, no ST elevation or depression. [] Radiology/Procedures: Radiology/Procedures: [] Impressions: EXAM: CHEST 1 VIEW History: Chest pain COMPARISON: None available. TECHNIQUE: Single portable radiograph of the chest FINDINGS: The cardiac silhouette is unremarkable. The lungs are clear bilaterally. The costophrenic sulci are clear and well demarcated. IMPRESSION: No radiographic evidence of an acute cardiopulmonary process. Electronically signed by: Quincy Horowitz MD (07/26/2020 1:56 PM) [id number] DICTATED AND SIGNED BY: QUINCY HOROWITZ MD DATE: 07/26/20 1354 CC: YAIR VILLEGAS DO; [facility] [facility] ~MTH0 0 Heart Score: C/O Chest Pain: Yes HEART Score for Chest Pain: HEART Score for Chest Pain Response (Comments) Value History Slighlty/Non-Suspicious 0 ECG Normal 0 Age < 45 0 Risk Factors 1 or 2 Risk Factors 1 Troponin < Normal Limit 0 Total 1 Risk Factors: Risk Factors: DM, Current or recent (<one month) smoker, HTN, HLP, family history of CAD, obesity. Risk Scores: Score 0 - 3: 2.5% MACE over next 6 weeks - Discharge Home Score 4 - 6: 20.3% MACE over next 6 weeks - Admit for Clinical Observation Score 7 - 10: 72.7% MACE over next 6 weeks - Early Invasive Strategies Course & Med Decision Making: Course & Med Decision Making Pertinent Labs and Imaging studies reviewed. (See chart for details) The patient's EKG is unremarkable. Her chest x-ray is unremarkable. Her labs are unremarkable. Her troponin is negative. Her heart score is a 1. Patient's discomfort does not appear to be life-threatening at this time. The patient is stable for discharge. [] Dragon Disclaimer: Dragon Disclaimer: This electronic medical record was generated, in whole or in part, using a voice recognition dictation system. Departure Departure: Impression: Primary Impression: Chest pain Qualified Codes: R07.9 - Chest pain, unspecified Disposition: HOME / SELF CARE / HOMELESS Condition: STABLE Referrals: [facility] [facility] (PCP) Patient Instructions: Chest Pain (Nonspecific), [id number] YAIR VILLEGAS DO July 26, 2020 13:39
[2020-07-26] MEDS ORDERED: ASPIRIN CHEWABLE 81 MG TABLET. PO ONE (13:45)
[2020-07-26 13:47] LABS: CALCIUM 8.7 mg/dL (8.5-10.1); CREATININE 0.6 mg/dL (0.6-1.0); GFR 111.9
[2020-07-26 13:54] LABS: ALBUMIN 3.6 g/dL (3.4-5.0); ALBUMIN/GLOBULIN RATIO 1.2 (1.0-1.7); TOTAL BILIRUBIN 0.9 mg/dL (0.2-1.0); TOTAL PROTEIN 6.6 g/dL (6.4-8.2)
--- NOTE | 2020-07-26 13:58 | RAD ---
EXAM: CHEST 1 VIEW History: Chest pain COMPARISON: None available. TECHNIQUE: Single portable radiograph of the chest FINDINGS: The cardiac silhouette is unremarkable. The lungs are clear bilaterally. The costophrenic sulci are clear and well demarcated. IMPRESSION: No radiographic evidence of an acute cardiopulmonary process. Electronically signed by: Quincy Horowitz MD (07/26/2020 1:56 PM) [id number]
--- NOTE | 2020-07-26 19:48 | EKG ---
[address] [address] Test Date: 2020-07-26 Test Time: 13:13:19 Pat Name: JOEY COLLINS Department: Room: Gender: F Client Service Supervisor: LOU : 1980 Requested By: YAIR VILLEGAS Order Number: [id number] Reading MD: Measurements Intervals [place] Rate: 98 P: 36 IA: 126 QRS: 41 QRSD: 90 T: 57 QT: 362 QTc: 464 Interpretive Statements SINUS RHYTHM NORMAL ECG RI6.02 No previous ECG available for comparison
== END 2020-07-26 14:30 | disposition home or self-care (01) ==
LOC: ER 13:07
DX: R07.89 Other chest pain (principal); F17.210 Nicotine dependence, cigarettes, uncomplicated; F12.10 Cannabis abuse, uncomplicated; Z88.0 Allergy status to penicillin; Z98.51 Tubal ligation status
CPT/HCPCS: 36415; 71045; 80053; 84484; 85025; 93005; 99285-25

== ENCOUNTER 2021-01-28 17:46 | Emergency (ER) | payer SELFPAY ==
[~2021-01-28] VITALS: Ht 167.6 cm; Wt 127.2 kg
[~2021-01-28 17:46] MED LIST changes: +CLIN-95 PO; -CLIN300C9 PO; -CYCL-331 PO; +CYCL10TA19 PO; +ERYT1OIN3 OS; -ERYT1OIN6 OS; +IBUP-1742 PO; -IBUP100O25 PO
--- NOTE | 2021-01-28 20:14 | PHYS DOC ---
Past History Past Medical History: No Pertinent History (KEARA SCHROEDER) Past Surgical History: , Tubal ligation, Other Additional Past Surgical Histo: back prudencio-L4-L5 for a mariangel disk;lt knee for torn meniscus (KEARA SCHROEDER) Smoking: Cigarettes Alcohol Use: Rarely Drug Use: Marijuana (KEARA SCHROEDER) General Adult EDM: Chief Complaint: COUGH HPI: HPI: Patient is a 40 year old female who presents with headache, fever, body aches, shortness of breath, nasal congestion, cough nausea, vomiting and diarrhea. Patient states her headache began 3 days ago and has gotten worse since onset. Starting yesterday, she developed her other symptoms. Patient reports one episode of emesis this morning. Patient presents to the emergency department to day due to her worsening nausea. Patient denies any direct sick contacts, however her coworkers son stayed home from school this past week. She is not vaccinated against COVID-19 or flu this season. Patient has no other complaints at this time. (KEARA SCHROEDER) Review of Systems: Review of Systems: Constitutional: See HPI Eyes: Denies change in visual acuity HENT: See HPI Respiratory: See HPI Cardiovascular: Denies chest pain or edema GI: See HPI : Denies dysuria or hematuria Musculoskeletal: Denies back pain or joint pain Integument: Denies rash or other skin lesions Neurologic: Denies headache, focal weakness or sensory changes (KEARA SCHROEDER) Allergies: Allergies: Allergies Coded Allergies Type Severity Reaction Last Updated Verified Penicillins Allergy Intermediate 07/26/20 Yes (KEARA SCHROEDER) Physical Exam: PE: Constitutional: Obese, no acute distress, appears fatigued. HENT: Normocephalic, atraumatic, bilateral external ears normal, oropharynx mois t, no oral exudates, bilateral nasal turbinates enlarged. Neck: Normal range of motion, no tenderness, supple, no stridor. Cardiovascular: Heart rate regular rhythm, no murmur. Lungs & Thorax: Bilateral breath sounds clear to auscultation. [] Abdomen: Protuberant abdomen, bowel sounds normal, soft, no tenderness, no masses, no pulsatile masses. Skin: Warm, dry, no erythema, no rash. Extremities: No tenderness, no cyanosis, no clubbing, ROM intact, no edema. Neurologic: Alert and oriented x4, normal motor function, normal sensory function, no focal deficits noted. (KEARA SCHROEDER) Current Patient Data: Labs: Laboratory Tests Test 01/28/21 20:39 01/28/21 20:45 White Blood Count 6.0 x10^3/uL (4.0-11.0) Red Blood Count 4.78 x10^6/uL (3.50-5.40) Hemoglobin 14.5 g/dL (12.0-15.5) Hematocrit 42.9 % (36.0-47.0) Mean Corpuscular Volume 90 fL (79-100) Mean Corpuscular Hemoglobin 30 pg (25-35) Mean Corpuscular Hemoglobin Concent 34 g/dL (31-37) Red Cell Distribution Width 12.5 % (11.5-14.5) Platelet Count 175 x10^3/uL (140-400) Neutrophils (%) (Auto) 67 % (31-73) Lymphocytes (%) (Auto) 24 % (24-48) Monocytes (%) (Auto) 8 % (0-9) Eosinophils (%) (Auto) 0 % (0-3) Basophils (%) (Auto) 1 % (0-3) Neutrophils # (Auto) 4.0 x10^3uL (1.8-7.7) Lymphocytes # (Auto) 1.4 x10^3/uL (1.0-4.8) Monocytes # (Auto) 0.5 x10^3/uL (0.0-1.1) Eosinophils # (Auto) 0.0 x10^3/uL (0.0-0.7) Basophils # (Auto) 0.0 x10^3/uL (0.0-0.2) Sodium Level 140 mmol/L (136-145) Potassium Level 4.0 mmol/L (3.5-5.1) Chloride Level 106 mmol/L (98-107) Carbon Dioxide Level 23 mmol/L (21-32) Anion Gap 11 (6-14) Blood Urea Nitrogen 5 mg/dL (7-20) Creatinine 0.5 mg/dL (0.6-1.0) Estimated GFR (Cockcroft-Gault) 137.4 BUN/Creatinine Ratio 10 (6-20) Glucose Level 94 mg/dL (70-99) Calcium Level 7.7 mg/dL (8.5-10.1) Total Bilirubin 0.3 mg/dL (0.2-1.0) Aspartate Amino Transf (AST/SGOT) 17 U/L (15-37) Alanine Aminotransferase (ALT/SGPT) 17 U/L (14-59) Alkaline Phosphatase 80 U/L (46-116) Total Protein 5.5 g/dL (6.4-8.2) Albumin 2.9 g/dL (3.4-5.0) Albumin/Globulin Ratio 1.1 (1.0-1.7) Lipase 106 U/L (73-393) Urine Collection Type Unknown Urine Color Yellow Urine Clarity Clear Urine pH 5.0 Urine Specific Gary >=1.030 Urine Protein Neg (NEG-TRACE) Urine Glucose (UA) Neg mg/dL (NEG) Urine Ketones (Stick) Neg mg/dL (NEG) Urine Blood Trace (NEG) Urine Nitrite Neg (NEG) Urine Bilirubin Neg (NEG) Urine Urobilinogen Dipstick 0.2 mg/dL (0.2 mg/dL) Urine Leukocyte Esterase Neg (NEG) Urine RBC Rare /HPF (0-2) Urine WBC Rare /HPF (0-4) Urine Squamous Epithelial Cells Few /LPF Urine Bacteria 0 /HPF (0-FEW) Vital Signs: Vital Signs Date Time Temp Pulse Resp B/P (MAP) Pulse Ox O2 Delivery O2 Flow Rate FiO2 01/28/21 18:28 100.0 89 16 125/78 (94) 97 Room Air (KEARA SCHROEDER) Radiology/Procedures: Radiology/Procedures: PROCEDURE: PORTABLE CHEST 1V EXAM: CHEST ONE VIEW. HISTORY: Shortness of breath, cough, fever. COMPARISON: 07/26/2020. FINDINGS: A frontal view of the chest is obtained. There are no confluent infiltrates. There is no pneumothorax or pleural effusion. The heart is not enlarged. IMPRESSION: 1. No confluent infiltrates. Electronically signed by: Michelle Lopes MD (01/28/2021 9:23 PM) [id number] (KEARA SCHROEDER) Heart Score: C/O Chest Pain: No (KEARA SCHROEDER) Course & Med Decision Making: Course & Med Decision Making Pertinent Labs and Imaging studies reviewed. (See chart for details) Patient presentation suspicious for COVID-19 infection. Work-up will include blood work, urinalysis, chest x-ray, Covid PCR swab. Corrected calcium for albumin is 8.6 mg/dL, within normal limits. Otherwise, patient work-up is unremarkable. Patient is instructed to quarantine until she receives Covid results. Chest x-ray is not consistent with bacterial pneumonia. Patient will have supportive treatment with Zofran, alternating ibuprofen and acetaminophen for fever and body discomfort, albuterol inhaler, incentive spirometry. (KEARA SCHROEDER) Dragon Disclaimer: Livevol Disclaimer: This electronic medical record was generated, in whole or in part, using a voice recognition dictation system. (KEARA SCHROEDER) Departure Departure: Impression: Primary Impression: Suspected COVID-19 virus infection Additional Impression: Acute viral syndrome Disposition: HOME / SELF CARE / HOMELESS Condition: STABLE Referrals: SANDRA BECERRA (PCP) Patient Instructions: Viral Syndrome Additional Instructions: Please quarantine until you receive your COVID test results tomorrow. If you do test Covid positive, your should quarantine as well. You should take [id number] acetaminophen and ibuprofen, alternating every 4 hours. You have been prescribed Zofran and an albuterol inhaler. Additionally, provided incentive spirometer to avoid lung tissue collapse. Please return to the emergency department for worsening symptoms or development of any new symptoms. Scripts Albuterol Sulfate (PROAIR HFA INHALER) 8.5 Gm Hfa.aer.ad 2 PUFF IH PRN Q4-6HRS PRN for SHORTNESS OF BREATH, #1 INHALER 0 Refills Prov: KEARA SCHROEDER 01/28/21 Ondansetron (ONDANSETRON ODT) 4 Mg Tab.rapdis 1 TAB PO PRN Q6-8HRS for nausea, #30 TAB May take 2 tablets every 8 hours if necessary. Prov: KEARA SCHROEDER 01/28/21 Attending Signature Attending Signature I have participated in the care of this patient and I have reviewed and agree with all pertinent clinical information above including history, exam, and recommendations. (BRIEN SANABRIA MD) KEARA SCHROEDER Jan 28, 2021 20:14 BRIEN SANABRIA MD Feb 02, 2021 19:31
[2021-01-28] MEDS ORDERED: IV RINGERS SOLUTION,LACTATED 1,000 ML IV ONE (20:15)
[2021-01-28] MEDS ORDERED: KETOROLAC 15 MG/ML VIAL. IVP ONE (20:15)
[2021-01-28] MEDS ORDERED: ONDANSETRON PF 4 MG/2 ML VIAL. IVP ONE ×2 (20:15→22:00)
[2021-01-28 21:06] LABS: BASO % 1 % (0-3); EOS % 0 % (0-3); HEMATOCRIT 42.9 % (36.0-47.0); HEMOGLOBIN 14.5 g/dL (12.0-15.5); LYMPH # 1.4 x10^3/uL (1.0-4.8); LYMPH % 24 % (24-48); MEAN CORPUSCULAR HEMOGLOBIN 30 pg (25-35); MEAN CORPUSCULAR HGB CONC 34 g/dL (31-37); MEAN CORPUSCULAR VOLUME 90 fL (79-100); MONO # 0.5 x10^3/uL (0.0-1.1); MONO % 8 % (0-9); NEUT % 67 % (31-73); PLATELET COUNT 175 x10^3/uL (140-400); RED BLOOD COUNT 4.78 x10^6/uL (3.50-5.40); RED CELL DISTRIBUTION WIDTH 12.5 % (11.5-14.5)
[2021-01-28 21:11] LABS: BACTERIA,URINE 0 /HPF (0-FEW); BILIRUBIN,URINE NEG (NEG); CLARITY,URINE CLEAR; COLOR,URINE YELLOW; GLUCOSE,URINE NEG (NEG); NITRITE,URINE NEG (NEG); RBC,URINE RARE /HPF (0-2); SQUAMOUS EPITHELIAL CELL,UR FEW /LPF; UROBILINOGEN,URINE 0.2 mg/dL (0.2 mg/dL); WBC,URINE RARE /HPF (0-4)
[2021-01-28 21:14] LABS: CALCIUM 7.7 mg/dL (8.5-10.1); CREATININE 0.5 mg/dL (0.6-1.0); GFR 137.4
[2021-01-28 21:20] LABS: ALBUMIN 2.9 g/dL (3.4-5.0); ALBUMIN/GLOBULIN RATIO 1.1 (1.0-1.7); TOTAL BILIRUBIN 0.3 mg/dL (0.2-1.0); TOTAL PROTEIN 5.5 g/dL (6.4-8.2)
--- NOTE | 2021-01-28 21:25 | RAD ---
EXAM: CHEST ONE VIEW. HISTORY: Shortness of breath, cough, fever. COMPARISON: 07/26/2020. FINDINGS: A frontal view of the chest is obtained. There are no confluent infiltrates. There is no pneumothorax or pleural effusion. The heart is not en larged. IMPRESSION: 1. No confluent infiltrates. Electronically signed by: Michelle Lopes MD (01/28/2021 9:23 PM) [id number]
[2021-01-28] MEDS ORDERED: ALBU2.5V8 IH (21:55)
[2021-01-28] MEDS ORDERED: ONDA4TAB12 PO (21:55)
[2021-01-28] MEDS ORDERED: ONDANSETRON 4MG ODT 4TABLET STARTPACK. PO ONE ×2 (22:13→22:15)
[2021-01-28 22:15] VITALS: BP 142/88
== END 2021-01-28 22:17 | disposition home or self-care (01) ==
LOC: ER 17:46
DX: U07.1 COVID-19 (principal); B34.9 Viral infection, unspecified; F17.210 Nicotine dependence, cigarettes, uncomplicated; R51.9 Headache, unspecified; Z88.0 Allergy status to penicillin
CPT/HCPCS: 71045; 80053; 81001; 83690; 85025; 96361; 96374; 96375; 96376; 99285; C9803; G0238; J1885; J2405; J7120; Q0162; U0003

== ENCOUNTER → 2021-07-08 | Outpatient (CLI) | payer OTHER ==
[~2021-07-08] MED LIST changes: +ALBU2.5V8 IH; +ONDA4TAB12 PO
--- NOTE | 2021-07-08 16:42 | RAD ---
INDICATION: Reason: DUB / Spl. Instructions: / History: COMPARISON: CT May 2016 TECHNIQUE: Grayscale and color ultrasound images uterus and adnexa. Transabdominal and transvaginal images obtained. Transvaginal images were needed to better visualize structures that were limited on transabdominal imaging. FINDINGS: Uterus: 103 x 55 x 48 mm. 18 mm endometrial stripe Right Ovary: 31 x 21 x 25 mm. Left Ovary: Not visualized. Cystic structures near the cervix could be nabothian cyst. IMPRESSION: * The endometrial stripe is thickened and appears heterogenous in nature. This could be from phase of the menstrual cycle but it may be helpful to obtain a follow-up at a different point to ensure justin t there is appropriate thinning of the endometrium and to ensure that there is no persistent thickeni ng which could be seen with hyperplasia or endometrial mass. * Multiple low-density lesions are seen within the cervical region and commonly secondary to complex nabothian cyst formation but given the complex appearance and may be helpful to obtain a follow-up t o ensure no growth to exclude any solid component. Electronically signed by: Silas Kerns MD (07/08/2021 4:40 PM) [id number]
== END ==
LOC: US 15:38
PROVIDERS: ATTEND Physician Assistant Medical
DX: N88.8 Other specified noninflammatory disorders of cervix uteri (principal); N93.8 Other specified abnormal uterine and vaginal bleeding
CPT/HCPCS: 76830; 76856

== ENCOUNTER → 2021-07-17 | Outpatient (CLI) | payer OTHER ==
--- NOTE | 2021-07-17 15:25 | RAD ---
DATE: 07/17/2021 EXAM: US BREAST LTD LT, MG DIGITAL BILAT DIAGNOSTIC MAMMO WITH JENN HISTORY: 40-year-old woman presenting with palpable lump in the left breast at 2:00. This has been pr esent for a year per patient and is tender on and off. COMPARISON: None. Baseline exam. Breast Density: SCATTERED The breast parenchyma shows scattered fibroglandular densities. Breast pare nchyma level B. FINDINGS: There are global asymmetries in the upper outer and lower inner left breast. The asymmetric tissue changes configuration with spot compression and is consistent with superimposed fibroglandula r tissue. No suspicious mass, suspicious calcifications, or architectural distortion. Ultrasound of the left breast was performed at 2-4 o'clock in the area of palpable concern. There is normal by the glandular tissue. No mass or cyst. No abnormal lymph nodes in the left axilla. IMPRESSION: No evidence of malignancy. Recommend annual screening mammogram in 12 months. BI-RADS CATEGORY: 1 NEGATIVE RECOMMENDED FOLLOW-UP: 12M 12 MONTH FOLLOW-UP PQRS compliance statement: Patient information was entered into a reminder system with a target due d ate for the next mammogram. Mammography is a sensitive method for finding small breast cancers, but it does not detect them all a nd is not a substitute for careful clinical examination. A negative mammogram does not negate a clin ically suspicious finding and should not result in delay in biopsying a clinically suspicious abnorma lity. "Our facility is accredited by the [employer] Mammography Program." Electronically signed by: Tish Johnson MD (07/17/2021 3:22 PM) [id number]
== END ==
LOC: MAMMO 08:56
PROVIDERS: ATTEND Physician Assistant Medical
DX: N64.89 Other specified disorders of breast (principal)
CPT/HCPCS: 76642; 77066; G0279; 77062